=== PATIENT | male | born 2000 | race Two or more races ===

== ENCOUNTER 2020-01-26 23:10 | Emergency (ER) | payer SELFPAY ==
[~2020-01-26] VITALS: Ht 167.6 cm; Wt 59.1 kg
[2020-01-27] MEDS ORDERED: DiphenhydrAMINE HCL 25 MG CAPSULE PO ONE (01:15)
[2020-01-27 01:43] VITALS: BP 119/68
== END 2020-01-27 02:23 | disposition home or self-care (01) ==
LOC: EMS 23:10
DX: R05 Cough (principal); R09.81 Nasal congestion; R50.9 Fever, unspecified; R51 Headache; M79.10 Myalgia, unspecified site